=== PATIENT | male | born 1985 | race African-American/Black ===

== ENCOUNTER 2023-04-03 17:23 | Inpatient (IN) | payer OTHER ==
[~2023-04-03] VITALS: Ht 198.1 cm; Wt 150.9 kg
[2023-04-03 18:14] VITALS: PULSE 74; RESP 13; O2SAT 98
[2023-04-03 18:15] LABS: Basophils # (auto) 0 10 ^3/uL (0-0.2); Basophils % (auto) 0.3 % (0.0-2.0); Eosinophils # (auto) 0.1 10 ^3/uL (0-0.8); Eosinophils % (auto) 1.9 % (0.0-7.0); Hematocrit 46.3 % (41.0-53.0); Hemoglobin 15.7 g/dL (13.5-17.5); Lymphocytes # (auto) 2.5 10 ^3/uL (0.4-5.4); Lymphocytes % (auto) 32.1 % (10.0-50.0); Mean Corpuscular Hemoglobin 30.4 pg (28.0-32.0); Mean Corpuscular Hgb Conc. 33.8 g/dL (32.0-36.0); Mean Corpuscular Volume 89.8 fL (80.0-100.0); Monocytes # (auto) 0.6 10 ^3/uL (0-1.3); Monocytes % (auto) 8.4 % (0.0-12.0); Neutrophils # (auto) 4.4 10 ^3/uL (1.6-8.6); Neutrophils % (auto) 57.3 % (37.0-80.0); Nucleated Red Blood Cells % 0.2 %; Red Blood Cells 5.15 10^6/uL (4.5-5.90); Red Cell Distribution Width 12.9 % (11.8-14.3); White Blood Cell 7.7 10^3/uL (4.4-10.8)
[2023-04-03 18:31] LABS: Albumin 4.3 g/dL (3.4-5.0); Calcium 9.2 mg/dL (8.5-10.1)
[2023-04-03 18:36] LABS: BUN/Creatinine Ratio 9.3 (10.0-20.0); Bilirubin, Total 0.6 mg/dL (0.2-1.0); Total Protein 7.5 g/dL (6.4-8.2)
[2023-04-03 19:03] LABS: Urine Bacteria FEW /hpf (None Seen); Urine Blood Negative /uL (Negative); Urine Mucus FEW (None Seen); Urine Specific Gravity 1.034 (1.001-1.035); Urine WBC <1 /hpf (0 - 3)
[2023-04-03 19:10] LABS: Alcohol, Urine < 3.0 mg/dL (0-10); Amphetamine Screen, Urine NEGATIVE (NEGATIVE); Barbiturate Scree,Urine NEGATIVE (NEGATIVE); Benzodiazephine Screen, Urine NEGATIVE (NEGATIVE); Cannabinoid Screen, Urine NEGATIVE (NEGATIVE); Cocaine Screen, Urine NEGATIVE (NEGATIVE); Opiate Scree,Urine NEGATIVE (NEGATIVE); Phencyclidine Screen, Urine NEGATIVE (NEGATIVE)
[2023-04-03] MEDS ORDERED: MORPHINE SULFATE 4 MG/ML SYR/VIAL IV ONE ×2 (19:15→23:45)
[2023-04-03] MEDS ORDERED: ONDANSETRON HCL 4 MG/2 ML VIAL IV ONE ×2 (19:15→23:45)
[2023-04-03 20:15] VITALS: PULSE 71; RESP 17; O2SAT 97
[2023-04-04 00:35] VITALS: PULSE 80; RESP 18; O2SAT 97
[2023-04-04] MEDS ORDERED: ONDANSETRON HCL 4 MG/2 ML VIAL IV ONE (03:30)
[2023-04-04] MEDS ORDERED: MORPHINE SULFATE 4 MG/ML SYR/VIAL IV ONE (03:30)
[2023-04-04] MEDS ORDERED: LORazepam 2MG/ML-1ML VIAL IV ONE ×2 (07:45→16:30)
[2023-04-04 09:27] VITALS: PULSE 81; RESP 16; O2SAT 97
[2023-04-04] MEDS ORDERED: MORPHINE SULFATE INJ 2 MG/ml SYRG IV PRN (10:15)
[2023-04-04] MEDS ORDERED: HYDROmorphone HCL 2 MG/ML VL/or syr IV PRN (10:15)
[2023-04-04] MEDS ORDERED: NITROGLYCERIN 0.4 MG SL TAB SL PRN (10:15)
[2023-04-04] MEDS ORDERED: GADOTERATE MEG 10 MMOL/20ml INJ (0.5MMOL/ml) IV ONE (11:46)
[2023-04-04] MEDS: HYDROcodone-ACET 5/325MG TAB PO PRN ×2 (14:43→22:28)
[2023-04-04] MEDS: CYCLOBENZAPRINE HCL 10 MG TAB PO SCH ×2 (14:49→22:27)
[2023-04-04] MEDS ORDERED: LORazepam 2MG/ML-1ML VIAL ONE (16:04)
[2023-04-04] MEDS: LORazepam 2MG/ML-1ML VIAL IV PRN (21:32)
[2023-04-04 22:00] VITALS: PULSE 75; RESP 15; O2SAT 98
[2023-04-04] MEDS ORDERED: GABAPENTIN 400 MG CAP PO SCH (22:00)
[2023-04-04] MEDS: LACTULOSE 20Gm/30ML SOLN PO SCH (22:25)
[2023-04-05] VITALS (9 sets, daily range): BP systolic 99–141; BP diastolic 43–81; PULSE 55–80; RESP 15–20; TEMP 96.9–98.2; O2SAT 93–99
[2023-04-05] MEDS: CYCLOBENZAPRINE HCL 10 MG TAB PO SCH ×3 (05:38→21:40)
[2023-04-05] MEDS: LACTULOSE 20Gm/30ML SOLN PO SCH ×2 (09:25→21:41)
[2023-04-05] MEDS: PANTOPRAZOLE 40 MG/10 ML VIAL INJ IV SCH (09:25)
[2023-04-05] MEDS: ENOXAPARIN SOD 40 MG/0.4 ML SYRINGE SC SCH (09:25)
[2023-04-05] MEDS: GABAPENTIN 300 MG CAP PO SCH ×2 (09:26→21:40)
[2023-04-05] MEDS ORDERED: dilTIAZem 25 MG/5 ML VIAL IV ONE (11:30)
[2023-04-05] MEDS ORDERED: METOPROLOL TARTRATE 25 MG TAB PO ONE (11:30)
[2023-04-05] MEDS: HYDROcodone-ACET 5/325MG TAB PO PRN (11:51)
[2023-04-05] MEDS: LORazepam 2MG/ML-1ML VIAL IV PRN (15:33)
[2023-04-05] MEDS: METOPROLOL TARTRATE 25 MG TAB PO SCH (21:41)
[2023-04-06] VITALS (7 sets, daily range): BP systolic 100–137; BP diastolic 45–71; PULSE 62–97; RESP 16–18; TEMP 97.5–97.9; O2SAT 93–100
[2023-04-06] MEDS: HYDROcodone-ACET 5/325MG TAB PO PRN ×2 (00:27→23:47)
[2023-04-06] MEDS: CYCLOBENZAPRINE HCL 10 MG TAB PO SCH ×3 (05:45→22:32)
[2023-04-06] MEDS: LORazepam 2MG/ML-1ML VIAL IV PRN ×2 (07:51→23:56)
[2023-04-06] MEDS: PANTOPRAZOLE 40 MG/10 ML VIAL INJ IV SCH (10:26)
[2023-04-06] MEDS: ONDANSETRON HCL 4 MG/2 ML VIAL IV PRN ×3 (10:26→20:14)
[2023-04-06] MEDS: ENOXAPARIN SOD 40 MG/0.4 ML SYRINGE SC SCH (10:26)
[2023-04-06] MEDS: METOPROLOL TARTRATE 25 MG TAB PO SCH ×2 (10:27→22:32)
[2023-04-06] MEDS: LACTULOSE 20Gm/30ML SOLN PO SCH ×2 (10:27→22:33)
[2023-04-06] MEDS: GABAPENTIN 300 MG CAP PO SCH ×2 (10:27→22:33)
[2023-04-06] MEDS: MORPHINE SULFATE INJ 2 MG/ml SYRG IV PRN ×3 (10:28→20:14)
[2023-04-07 05:00] VITALS: BP 95/51; PULSE 65; RESP 16; TEMP 97.6; O2SAT 93
[2023-04-07] MEDS: ONDANSETRON HCL 4 MG/2 ML VIAL IV PRN ×2 (05:25→19:46)
[2023-04-07] MEDS: MORPHINE SULFATE INJ 2 MG/ml SYRG IV PRN ×4 (05:29→23:36)
[2023-04-07] MEDS: CYCLOBENZAPRINE HCL 10 MG TAB PO SCH ×3 (05:30→21:23)
[2023-04-07 08:10] VITALS: PULSE 62
[2023-04-07 09:00] VITALS: BP 93/57; PULSE 68; RESP 18; TEMP 97.9; O2SAT 98
[2023-04-07] MEDS: PANTOPRAZOLE 40 MG/10 ML VIAL INJ IV SCH (09:16)
[2023-04-07] MEDS: LACTULOSE 20Gm/30ML SOLN PO SCH ×2 (09:17→21:22)
[2023-04-07] MEDS: LORazepam 2MG/ML-1ML VIAL IV PRN ×2 (09:17→19:41)
[2023-04-07] MEDS: METOPROLOL TARTRATE 25 MG TAB PO SCH ×2 (09:18→22:00)
[2023-04-07] MEDS: ENOXAPARIN SOD 40 MG/0.4 ML SYRINGE SC SCH (09:19)
[2023-04-07] MEDS: GABAPENTIN 300 MG CAP PO SCH ×2 (09:19→21:25)
[2023-04-07 13:00] VITALS: BP 117/65; PULSE 74; RESP 18; TEMP 97.9; O2SAT 98
[2023-04-07 20:00] VITALS: BP 115/64; PULSE 81; PULSE 84; RESP 20; TEMP 97.6; O2SAT 95
[2023-04-07 22:00] VITALS: BP 115/64; PULSE 87; RESP 20; TEMP 97.6; O2SAT 95
[2023-04-07] MEDS: HYDROcodone-ACET 5/325MG TAB PO PRN (22:26)
[2023-04-08] VITALS (7 sets, daily range): BP systolic 104–126; BP diastolic 61–72; PULSE 65–86; RESP 16–20; TEMP 97.7–97.9; O2SAT 94–98
[2023-04-08] MEDS: CYCLOBENZAPRINE HCL 10 MG TAB PO SCH ×3 (05:13→21:05)
[2023-04-08] MEDS: HYDROcodone-ACET 5/325MG TAB PO PRN ×3 (05:14→21:14)
[2023-04-08] MEDS: MORPHINE SULFATE INJ 2 MG/ml SYRG IV PRN ×2 (05:36→10:15)
[2023-04-08] MEDS: LORazepam 2MG/ML-1ML VIAL IV PRN ×3 (05:36→19:41)
[2023-04-08] MEDS: ONDANSETRON HCL 4 MG/2 ML VIAL IV PRN ×2 (05:44→19:41)
[2023-04-08] MEDS: GABAPENTIN 300 MG CAP PO SCH ×2 (09:45→21:05)
[2023-04-08] MEDS: LACTULOSE 20Gm/30ML SOLN PO SCH ×2 (09:45→21:05)
[2023-04-08] MEDS: ENOXAPARIN SOD 40 MG/0.4 ML SYRINGE SC SCH (09:46)
[2023-04-08] MEDS: PANTOPRAZOLE 40 MG/10 ML VIAL INJ IV SCH (09:46)
[2023-04-08] MEDS: METOPROLOL TARTRATE 25 MG TAB PO SCH ×2 (09:47→22:00)
[2023-04-08] MEDS: MORPHINE SULFATE 4 MG/ML SYR/VIAL IV PRN (19:40)
[2023-04-09] VITALS (7 sets, daily range): BP systolic 89–133; BP diastolic 44–71; PULSE 73–87; RESP 16–21; TEMP 97.5–98.4; O2SAT 96–99
[2023-04-09] MEDS: MORPHINE SULFATE 4 MG/ML SYR/VIAL IV PRN ×4 (03:42→21:07)
[2023-04-09] MEDS: LORazepam 2MG/ML-1ML VIAL IV PRN ×3 (03:42→14:55)
[2023-04-09] MEDS: ONDANSETRON HCL 4 MG/2 ML VIAL IV PRN ×3 (03:43→21:06)
[2023-04-09] MEDS: CYCLOBENZAPRINE HCL 10 MG TAB PO SCH ×3 (06:00→22:14)
[2023-04-09] MEDS: GABAPENTIN 300 MG CAP PO SCH ×2 (09:32→22:13)
[2023-04-09] MEDS: ENOXAPARIN SOD 40 MG/0.4 ML SYRINGE SC SCH (09:32)
[2023-04-09] MEDS: LACTULOSE 20Gm/30ML SOLN PO SCH ×2 (09:32→22:14)
[2023-04-09] MEDS: PANTOPRAZOLE 40 MG/10 ML VIAL INJ IV SCH (09:32)
[2023-04-09] MEDS: METOPROLOL TARTRATE 25 MG TAB PO SCH ×2 (09:34→22:14)
[2023-04-09] MEDS: HYDROcodone-ACET 5/325MG TAB PO PRN ×3 (09:44→22:13)
[2023-04-10] VITALS (7 sets, daily range): BP systolic 104–134; BP diastolic 50–86; PULSE 72–98; RESP 17–20; TEMP 95–98.5; O2SAT 94–97
[2023-04-10] MEDS: MORPHINE SULFATE 4 MG/ML SYR/VIAL IV PRN ×5 (00:31→22:25)
[2023-04-10] MEDS: HYDROcodone-ACET 5/325MG TAB PO PRN ×3 (04:09→18:17)
[2023-04-10] MEDS: LORazepam 2MG/ML-1ML VIAL IV PRN ×5 (04:17→18:18)
[2023-04-10] MEDS: CYCLOBENZAPRINE HCL 10 MG TAB PO SCH ×3 (06:29→22:23)
[2023-04-10] MEDS: ONDANSETRON HCL 4 MG/2 ML VIAL IV PRN ×2 (06:31→22:24)
[2023-04-10] MEDS: GABAPENTIN 300 MG CAP PO SCH ×2 (09:30→22:22)
[2023-04-10] MEDS: ENOXAPARIN SOD 40 MG/0.4 ML SYRINGE SC SCH (09:30)
[2023-04-10] MEDS: LACTULOSE 20Gm/30ML SOLN PO SCH ×2 (09:30→22:22)
[2023-04-10] MEDS: PANTOPRAZOLE 40 MG/10 ML VIAL INJ IV SCH (09:31)
[2023-04-10] MEDS: METOPROLOL TARTRATE 25 MG TAB PO SCH ×2 (09:31→22:23)
[2023-04-11] MEDS: LORazepam 2MG/ML-1ML VIAL IV PRN ×2 (01:14→06:49)
[2023-04-11] MEDS: HYDROcodone-ACET 5/325MG TAB PO PRN ×3 (01:14→13:23)
[2023-04-11] MEDS: ONDANSETRON HCL 4 MG/2 ML VIAL IV PRN ×2 (04:30→09:13)
[2023-04-11] MEDS: MORPHINE SULFATE 4 MG/ML SYR/VIAL IV PRN ×2 (04:31→09:13)
[2023-04-11 05:00] VITALS: BP 120/70; PULSE 75; RESP 20; TEMP 98.7; O2SAT 98
[2023-04-11] MEDS: CYCLOBENZAPRINE HCL 10 MG TAB PO SCH ×2 (06:48→15:25)
[2023-04-11 09:00] VITALS: BP 123/78; PULSE 76; RESP 19; TEMP 97.9; O2SAT 95
[2023-04-11] MEDS: ENOXAPARIN SOD 40 MG/0.4 ML SYRINGE SC SCH (09:12)
[2023-04-11] MEDS: PANTOPRAZOLE 40 MG/10 ML VIAL INJ IV SCH (09:12)
[2023-04-11] MEDS: LACTULOSE 20Gm/30ML SOLN PO SCH (09:13)
[2023-04-11] MEDS: METOPROLOL TARTRATE 25 MG TAB PO SCH (09:14)
[2023-04-11] MEDS: GABAPENTIN 300 MG CAP PO SCH (09:14)
[2023-04-11 10:00] VITALS: PULSE 73
[2023-04-11 13:00] VITALS: BP 104/63; PULSE 71; RESP 17; TEMP 97.9; O2SAT 97
[2023-04-11 19:12] VITALS: BP 146/78; PULSE 84; RESP 18; TEMP 98.4; O2SAT 94
== END 2023-04-11 19:55 | DRG 555 ==
LOC: ER 17:23 → EEVIPCON 17:23 → EDBD 17:23 → TELE 04-04 10:24 → TELE-WESTW 04-04 23:06
PROVIDERS: ADMIT Specialist; ATTEND Specialist
DX: M79.605 Pain in left leg (principal); G93.41 Metabolic encephalopathy; R53.1 Weakness; M54.9 Dorsalgia, unspecified; R41.82 Altered mental status, unspecified; M54.50 Low back pain, unspecified; G83.9 Paralytic syndrome, unspecified; I10 Essential (primary) hypertension; R47.9 Unspecified speech disturbances; Z82.49 Family history of ischemic heart disease and other diseases of the circulatory system; Z83.3 Family history of diabetes mellitus; Z88.5 Allergy status to narcotic agent
CPT/HCPCS: 36415; 70450; 70553; 71045; 72158; 73020; 73060; 73590; 73718; 80053; 80307; 81001; 85025; 85652; 93005; 93306; 93971; 95819; 96365; 96375; 96376; 97110; 97116; 97163; 97530; C9113; G0378; J2405; J7060

== ENCOUNTER 2023-10-17 13:10 | Emergency (ER) | payer OTHER ==
[~2023-10-17] VITALS: Ht 188 cm; Wt 113.0 kg
[2023-10-17 14:20] VITALS: PULSE 81; RESP 14; O2SAT 92
[2023-10-17] MEDS ORDERED: MORPHINE SULFATE 4 MG/ML SYR/VIAL IV ONE (14:30)
[2023-10-17] MEDS ORDERED: ONDANSETRON HCL 4 MG/2 ML VIAL IV ONE (14:30)
[2023-10-17] MEDS ORDERED: LORazepam 2MG/ML-1ML VIAL IV ONE (15:00)
[2023-10-17 15:05] LABS: Basophils # (auto) 0.1 10 ^3/uL (0-0.2); Basophils % (auto) 0.9 % (0.0-2.0); Eosinophils # (auto) 0.1 10 ^3/uL (0-0.8); Hematocrit 47.9 % (41.0-53.0); Lymphocytes # (auto) 2.5 10 ^3/uL (0.4-5.4); Lymphocytes % (auto) 33.3 % (10.0-50.0); Mean Corpuscular Hemoglobin 30.2 pg (28.0-32.0); Mean Corpuscular Hgb Conc. 33.4 g/dL (32.0-36.0); Mean Corpuscular Volume 90.3 fL (80.0-100.0); Monocytes # (auto) 0.5 10 ^3/uL (0-1.3); Monocytes % (auto) 7.2 % (0.0-12.0); Neutrophils # (auto) 4.2 10 ^3/uL (1.6-8.6); Neutrophils % (auto) 56.6 % (37.0-80.0); Nucleated Red Blood Cells % 0.1 %; Red Cell Distribution Width 12.9 % (11.8-14.3); White Blood Cell 7.4 10^3/uL (4.4-10.8)
[2023-10-17 15:22] LABS: INR 1.11 (0.9-1.15); Partial Thromboplastin Time 29.1 SEC (24.5-34.5); Prothrombin Time 11.6 sec (9.3-11.8)
[2023-10-17 15:23] LABS: Alanine Aminotransferase 122 U/L (7-40); Albumin 4.5 g/dL (3.2-4.8); Alkaline Phosphatase 49 U/L (46-116); Anion Gap 8 (5-15); Aspartate Aminotransferase 42 U/L (13-40); BUN/Creatinine Ratio 12.5 (10.0-20.0); Bilirubin, Total 0.9 mg/dL (0.2-1.0); Blood Urea Nitrogen 17 mg/dL (9-23); Calcium 9.9 mg/dL (8.5-10.1); Carbon Dioxide 24 mmol/L (20-30); Chloride 107 mmol/L (98-107); Glucose 83 mg/dL (74-106); Potassium 4.3 mmol/L (3.5-5.1); Sodium 139 mmol/L (136-145); Total Protein 7.2 g/dL (5.7-8.2)
[2023-10-17] MEDS ORDERED: APIX5TAB4 PO (16:48)
[2023-10-17] MEDS ORDERED: APIXABAN 5 MG TAB PO SCH (18:00)
[2023-10-17 20:59] VITALS: BP 133/94; TEMP 97.9
[2023-10-17 21:01] VITALS: PULSE 74; RESP 12; O2SAT 97
[2023-10-24] MEDS ORDERED: APIXABAN 5 MG TAB PO SCH (18:00)
== END 2023-10-17 21:02 ==
LOC: EEVIPCON 13:10 → ER 13:10 → EDBD 13:10 → ER 21:02
DX: I82.492 Acute embolism and thrombosis of other specified deep vein of left lower extremity (principal); M79.89 Other specified soft tissue disorders; Z98.890 Other specified postprocedural states; Z88.8 Allergy status to other drugs, medicaments and biological substances
CPT/HCPCS: 36415; 71045; 80053; 83880; 84484; 85025; 85379; 85610; 85730; 93971; 96374; 96375; 99285; J2060; J2270; J2405